=== PATIENT | female | born 1990 | race Caucasian/White ===

== ENCOUNTER → 2016-10-27 | Outpatient (CLI) | payer BC ==
[~2016-10-27] MED LIST: NO ROUTINE MEDS; SULF1TAB42 PO
--- NOTE | 2016-10-27 21:26 | WOUNDPNF ---
DATE 10/27/2016 HISTORY This patient underwent incision and drainage of a recurrent deep subcutaneous abscess at the mons pubis area of the abdomen on 10/12/2016 at the office by Dr. Simental. The patient does have a wound VAC applied to the open wound at the right mons pubis area at this time. Negative pressure for the wound VAC is set at 125 mmHg. PHYSICAL EXAMINATION Vital signs: Blood pressure is 137/69. Pulse is 81. Temperature is 98.1 degrees Fahrenheit. Weight is 254 pounds. ABDOMEN: The patient does have an open wound at the mons pubis area at the suprapubic region of the abdomen just to the right side of midline. This is a transversely oriented open wound at the incision and drainage site at this area. This wound is 4 cm long in a nfkpq-nu-ikrb direction. The wound is 0.8 cm wide in a rfvkuzei-mh-bjikuqah direction. The wound is 1.3 cm deep. The patient does have 100% of the open surface of the wound lined with healthy red granulation tissue. There is no purulence at the wound. There is no necrotic tissue at the wound. IMPRESSION Open wound at mons pubis following incision and drainage of a recurrent deep subcutaneous abscess at the mons pubis area just to the right side of midline on 10/12/2016. TREATMENT Wound VAC dressings were removed at the open wound at the mons pubis today by [facility] nurses. Wound assessment was performed by Dr. Simental. No debridement of the wound was needed today. Instructions for ongoing care were provided by Dr. Simental. The wound VAC was then applied to the wound by [facility] nurses. PLAN 1. Increase negative pressure with the wound VAC to 150 mmHg and continue negative pressure therapy to the open wound at the right mons pubis area. 2. Return back to [facility] for another wound VAC dressing change on 10/31/2016. 3. Return back to [facility] for another wound VAC dressing change again on 11/03/2016. The wound will be reassessed by Dr. Simental again at that time. [facility]
== END ==
LOC: NWCC 16:22
PROVIDERS: ATTEND Surgery
DX: S31.000A Unspecified open wound of lower back and pelvis without penetration into retroperitoneum, initial encounter (principal); L02.215 Cutaneous abscess of perineum; B95.7 Other staphylococcus as the cause of diseases classified elsewhere
CPT/HCPCS: 97605

== ENCOUNTER → 2016-10-31 | Outpatient (CLI) | payer BC | LOC: NWCC 16:16 | PROVIDERS: ATTEND Surgery | DX: S31.000A Unspecified open wound of lower back and pelvis without penetration into retroperitoneum, initial encounter (principal); L02.215 Cutaneous abscess of perineum; B95.7 Other staphylococcus as the cause of diseases classified elsewhere | CPT/HCPCS: 97605 ==

== ENCOUNTER → 2016-11-03 | Outpatient (CLI) | payer BC ==
--- NOTE | 2016-11-04 07:52 | WOUNDPNF ---
DATE 11/03/2016 HISTORY This patient underwent incision and drainage of a recurrent deep subcutaneous abscess at the mons pubis area of the abdomen on 10/12/2016 at the office by Dr. Simental. The patient has had a wound VAC applied to the open wound at the right mons pubis area. PHYSICAL EXAMINATION ABDOMEN: The patient does have an open wound at the mons pubis area at the suprapubic region of the abdomen just to the right side of midline. This is a transversely oriented open wound at the incision and drainage site at this area. This wound is 2 cm long in a nbwla-cz-hzji direction. The wound is 0.5 cm wide in a uddxfdme-tq-wrsrpqjh direction. The wound is 0.5 cm deep. The patient does have 100% of the open surface of the wound lined with healthy red granulation tissue. There is no purulence at the wound. There is no necrotic tissue at the wound. IMPRESSION Open wound at mons pubis following incision and drainage of a recurrent deep subcutaneous abscess at the mons pubis area just to the right side of midline on 10/12/2016. TREATMENT Wound VAC dressings were removed at the open wound at the mons pubis today by [facility] nurses. Wound assessment was performed by Dr. Simental. No debridement of the wound was needed today. Instructions for ongoing care were provided by Dr. Simental. The [facility] nurses did then apply Hydrofera Blue Classic antimicrobial foam dressing to the wound and cover this with Mepilex dressing. PLAN 1. Discontinue wound VAC at this time and switch active wound care to application of Hydrofera Blue Classic antibacterial foam dressing covered with Mepilex dressing. 2. Return back to [facility] for a dressing change on 11/07/2016. 3. Return back to [facility] for another dressing change on 11/10/2016. The wound will be reassessed by Dr. Simental again at that time. KARTHIK
== END ==
LOC: NWCC 16:14
PROVIDERS: ATTEND Surgery
DX: S31.000A Unspecified open wound of lower back and pelvis without penetration into retroperitoneum, initial encounter (principal); L02.215 Cutaneous abscess of perineum; B95.7 Other staphylococcus as the cause of diseases classified elsewhere
CPT/HCPCS: 99212; A6209; A6210

== ENCOUNTER → 2016-11-10 | Outpatient (CLI) | payer BC ==
--- NOTE | 2016-11-11 08:31 | WOUNDPNF ---
DATE 11/10/2016 HISTORY This patient underwent incision and drainage of a recurrent deep subcutaneous abscess at the mons pubis area of the abdomen on 10/12/2016 at the office by Dr. Simental. The patient did initially have a wound VAC applied to the open wound. Use of the wound VAC was discontinued on 11/03/2016. Local wound care with application of Hydrofera BLUE classic antibacterial foam dressing covered with Mepilex dressing was started on 11/03/2016. PHYSICAL EXAMINATION ABDOMEN: The previous open wound at the mons pubis area at the suprapubic region of the abdomen just to the right of midline is completely healed closed today. IMPRESSION 1. Complete healing of previous open wound at mons pubis following incision and drainage of a recurrent deep subcutaneous abscess at the mons pubis area just to the right side of midline on 10/12/2016. TREATMENT The dressings were removed at the wound at the mons pubis by [facility] nurses today. Wound assessment was performed by Dr. Simental. Instructions for ongoing care were provided by Dr. Simental. No new dressings were applied to this healed open wound. PLAN No further followup visits at [facility] are scheduled at this time since the wound is completely healed. Follow up [email or web address]
== END ==
LOC: NWCC 16:17
PROVIDERS: ATTEND Surgery
DX: S31.109A Unspecified open wound of abdominal wall, unspecified quadrant without penetration into peritoneal cavity, initial encounter (principal); L02.215 Cutaneous abscess of perineum; B95.7 Other staphylococcus as the cause of diseases classified elsewhere